=== PATIENT | male | born 1950 | race Hispanic/Latino ===

== ENCOUNTER 2016-11-08 11:41 | Emergency (ER) | payer OTHER ==
[2016-11-08 14:11] LABS: Basophils % (Auto) 0.7 % (0.0-1.8); Eosinophils % (Auto) 1.5 % (0.0-4.3); Hematocrit 42.3 % (35.5-45.6); Hemoglobin 13.9 gm/dl (11.8-15.2); Mean Corpuscular HGB Conc 33 % (32-34); Mean Corpuscular Hemoglobin 29 pg (28-32); Mean Corpuscular Volume 88 fl (84-94); Platelet Count 286 K/mm3 (140-440); Red Blood Count 4.81 M/mm3 (3.65-5.03); Red Cell Distribution Width 14.7 % (13.2-15.2); White Blood Count 8.7 K/mm3 (4.5-11.0)
[2016-11-08 14:29] LABS: Anion Gap 20 mmol/L; BUN/Creatinine Ratio 15.45; Blood Urea Nitrogen 17 mg/dL (9-20); Calcium 9.6 mg/dL (8.4-10.2); Carbon Dioxide 19 mmol/L (22-30); Chloride 101.7 mmol/L (98-107); Glucose 89 mg/dL (75-100); Potassium 4.4 mmol/L (3.6-5.0); Sodium 136 mmol/L (137-145)
--- NOTE | 2016-11-08 15:02 | XRay Report ---
Right hand 3 views: History: Swelling, pain, redness. Findings: There appears to be soft tissue swelling of middle finger right hand. There is no periosteal reaction lytic lesion or fracture. Faint radiolucency measuring 3 mm in diameter noted at the proximal diaphysis index finger probably related to old injury or congenital cyst. Arthritic changes are noted at the first and second and third metacarpophalangeal joints. Arthritic changes also noted at the distal second third fourth and fifth interphalangeal joints. Impression: Findings as described. No acute changes.
[2016-11-08] MEDS ORDERED: TYLENOL PO ONE (15:46)
[2016-11-08 17:59] VITALS: BP 146/78
--- NOTE | 2016-11-08 19:15 | Emergency Department Report ---
Entered by MARTINA VEGA, acting as scribe for PAOLA BOWLING PA. Upper Extremity - HPI Chief Complaint: Extremity Injury, Upper Stated Complaint: GOUT R HAND Time Seen by Provider: 11/08/16 15:46 Upper Extremity: Right Hand ( swelling, erythema metacarpal joint index,middle and ring), Right Index Finger ( swelling, erythema), Right Middle Finger (pain, swelling, erythema), Right Ring Finger ( swelling, erythema) Occurred When: 2 Days Mechanism: Other (no known injury) Severity: severe (10/10) Symptoms: Yes Pain with Movement, Yes Limited Range of Movement, Yes Swelling, No Deformity, No Numbness, No Weakness, No Bruising/Ecchymosis, No Laceration or Abrasion Other History: 65 year old male with PMHx gout presents to the ED for evaluation of pain, redness and swelling to right index, middle, and ring finger for 2 days. Patient reports symptoms have worsened since onset and spread to proximally to right hand towards wrist. He reports associated chills but denies known injury. Patient was seen by his nephrologists Dr. Paul Meyer, today for routine appointment and sent to the ED for further evaluation of right hand. He reports using topical aspercreme and extra strength Tylenol yesterday with no relief of pain. Notes he recently finished course of antibiotics and steroids for sinus infection. Denies shortness of breath, chest pain, abdominal pain, nausea, vomiting. ED Review of Systems ROS: Stated complaint: GOUT R HAND Other details as noted in HPI Comment: All other systems reviewed and negative Constitutional: chills. denies: fever Respiratory: denies: shortness of breath Cardiovascular: denies: chest pain, palpitations, edema, syncope Gastrointestinal: denies: abdominal pain, nausea, vomiting Musculoskeletal: joint swelling, arthralgia, other (pain to right hand and right ring, middle, and index finger with limited range of motion. No known injury.) Skin: change in color (erythema to right hand and right ring, middle, and index finger). denies: other (bruising, abrasion, laceration) Neurological: denies: headache, weakness, numbness, paresthesias ED Past Medical Hx - Past Medical History Previous Medical History?: Yes Hx Hypertension: Yes Hx Renal Disease: Yes (STAGE 4; NOW STAGE 2) Additional medical history: "1 KIDNEY". "lung nodule" - Surgical History Past Surgical History?: No - Family History Family history: no significant - Social History Smoking Status: Former Smoker Substance Use Type: Alcohol - Medications Home Medications: Home Medications Medication Instructions Recorded Confirmed Last Taken Type Sulfamethoxazole/Trimethoprim 1 each PO BID #20 tablet 11/08/16 Unknown Rx [Bactrim DS TAB] predniSONE [Deltasone] 20 mg PO QDAY #5 tab 11/08/16 Unknown Rx Upper Extremity Exam - Exam General: Vital signs noted. No distress. Alert and acting appropriately. This is a 65-year-old male well-nourished well-developed in no acute distress. Head and Torso: No HEENT Abnormality (Uvula is midline. Mucous membranes are moist. Airway patent ), No Neck Tenderness (Neck is supple with full range of motion. Non edematous or lymphadenopathy.), No Chest/Lungs Abnormality (Lungs are clear to ausculation. No wheezes, rhonchi, or rales. Regular rate and rhythm. Normal S1/S2. No murmurs, rubs or gallops.), No Abdominal Tenderness ( Abdomen is soft, non tender and non distended. No guarding or rebound. Normal bowel sounds.), No Back Tenderness Shoulder Exam: Yes Normal Range of Motion in Shoulder, No Shoulder Tenderness, No Clavicle Tenderness, No Shoulder Deformity, No AC Joint Tenderness Arm Exam: No Arm/Humerus Tenderness, No Arm Deformity Elbow: Yes Normal Range of Motion in Elbow, No Elbow Tenderness, No Elbow Deformity Forearm: No Forearm Tenderness, No Forearm Deformity, No Pain with Pronation, No Pain with Supination Wrist: Yes Normal ROM in Wrist, No Wrist Tenderness, No Wrist Deformity, No Snuffbox Tenderness, No Pain with Axial Thumb Compression Hand: Yes Hand Tenderness (over right 2nd, 3rd, and 4th metacarpal), Yes Digit Tenderness ( 3rd digit mip and dip joint), Yes Normal ROM in Digit(s), Yes Digit (s) Deformity (swelling to dip and mip,pip joints), No Hand Deformity, No Tendon Dysfunction CMS Exam: Yes Normal Distal Pulses (2+ bilateral radial pulses bilaterally), Yes Normal Capillary Refill (less than 2 seconds), Yes Normal Distal Sensation, No Broken Skin (Skin is warm, dry and intact. Erythema is present to right 2nd, 3rd, and 4th metacarpal and right 2nd and 3rd digit. No streaking) ED Course Vital Signs 11/08/16 13:35 Temperature 98.2 F Pulse Rate 78 Respiratory 18 Rate Blood Pressure 147/82 O2 Sat by Pulse 98 Oximetry - Reevaluation(s) Reevaluation #1: 11/08/16 17:43 Tylenol 650 mg in emergency room. He said that the swelling has gone down since his blood in emergency room and pain has subsided ED Medical Decision Making - Lab Data Result diagrams: 11/08/16 14:01 11/08/16 14:01 Lab Results 11/08/16 11/08/16 11/08/16 Range/Units 14:01 14:01 14:01 WBC 8.7 (4.5-11.0) K/mm3 RBC 4.81 (3.65-5.03) M/mm3 Hgb 13.9 (11.8-15.2) gm/dl Hct 42.3 (35.5-45.6) % MCV 88 (84-94) fl MCH 29 (28-32) pg MCHC 33 (32-34) % RDW 14.7 (13.2-15.2) % Plt Count 286 (140-440) K/mm3 Lymph % (Auto) 14.1 (13.4-35.0) % [place] % (Auto) 10.0 H (0.0-7.3) % Eos % (Auto) 1.5 (0.0-4.3) % Baso % (Auto) 0.7 (0.0-1.8) % Lymph # 1.2 (1.2-5.4) K/mm3 [place] # 0.9 H (0.0-0.8) K/mm3 Eos # 0.1 (0.0-0.4) K/mm3 Baso # 0.1 (0.0-0.1) K/mm3 Seg Neutrophils % 73.7 H (40.0-70.0) % Seg Neutrophils # 6.4 (1.8-7.7) K/mm3 Sodium 136 L (137-145) mmol/L Potassium 4.4 (3.6-5.0) mmol/L Chloride 101.7 (98-107) mmol/L Carbon Dioxide 19 L (22-30) mmol/L Anion Gap 20 mmol/L BUN 17 (9-20) mg/dL Creatinine 1.1 (0.8-1.5) mg/dL Estimated GFR > 60 ml/min BUN/Creatinine Ratio 15.45 % Glucose 89 (75-100) mg/dL Uric Acid 7.5 (3.5-7.6) mg/dL Calcium 9.6 (8.4-10.2) mg/dL - Radiology Data Radiology results: report reviewed X-ray of right hand shows patient with arthritic changes with an physical findings he has swelling to PIP, DIP MIP joints Patient given Tylenol - Medical Decision Making ED course: Sent here to be assessed for soft tissue infection. His history department chair. Patient reports history of gout but said that his history department chair was not sure whether was gout or infection. I went over his lab work with him and told that his uric acid level is within normal limits His White blood cell was normal. saw and Evaluate Patient. I decided the patient has gouty arthritis and will be covered with prednisone. Cannot get an said because of kidney function. We also decided to cover patient with antibiotics empirically. This was discussed the patient and family and is in agreement. She was given Tylenol 650 mg by mouth in emergency room and he said pain and swelling has decreased significantly since he's been in the emergency room and since she is taking Tylenol. Patient discharged home with his prescription for prednisone and Bactrim Critical care attestation.: If time is entered above; I have spent that time in minutes in the direct care of this critically ill patient, excluding procedure time. ED Disposition Clinical Impression: Arthritis, gouty, Suspected soft tissue infection Disposition: DISCHARGED TO HOME OR SELFCARE Is pt being admited?: No Does the pt Need Aspirin: No Condition: Stable Instructions: Acute Gouty Arthritis (ED) Additional Instructions: Please see medication as prescribed. Suspect some soft tissue swelling to right hand without any tendon dysfunction. This is why you are placed Bactrim wishes antibiotic. Prescriptions: predniSONE [Deltasone] 20 mg PO QDAY #5 tab Sulfamethoxazole/Trimethoprim [Bactrim DS TAB] 1 each PO BID #20 tablet Referrals: PRIMARY CAREMD [Primary Care Provider] - 11/11/16 Forms: Accompanied Note, Work/School Release Form(ED) This documentation as recorded by the GARY gan REBEKAH,accurately reflects the service I personally performed and the decisions made by ,PAOLA BOWLING PA.
== END 2016-11-08 17:58 | disposition home or self-care (01) ==
LOC: ED 11:41
DX: M10.9 Gout, unspecified (principal); L08.9 Local infection of the skin and subcutaneous tissue, unspecified; I10 Essential (primary) hypertension; Z87.891 Personal history of nicotine dependence
CPT/HCPCS: 36415; 80048; 84550; 85025; 99284